=== PATIENT | female | born 1980 | race Caucasian/White ===

== ENCOUNTER 2018-07-15 08:25 | Emergency (ER) | payer BC ==
[2018-07-15] MEDS: IBUPROFEN 800 MG TAB PO (09:31)
== END 2018-07-15 10:10 | disposition home or self-care (01) ==
LOC: FTE 08:25
DX: L72.9 Follicular cyst of the skin and subcutaneous tissue, unspecified (principal)
CPT/HCPCS: 76536; 99284-25